=== PATIENT | female | born 1970 ===

== ENCOUNTER 2017-11-07 18:29 | Emergency (ER) | payer OTHER ==
[2017-11-07 18:33] VITALS: BP 120/60; PULSE 118; RESP 16; TEMP 98; O2SAT 100
[2017-11-07] MEDS ORDERED: Alum-Mag Hydrox-Simethicone Susp (30 mL) PO STA (19:20)
--- NOTE | 2017-11-07 19:24 | ED PDOC ---
HPI: Abdomen Time Seen by Provider: 11/07/17 18:53 Chief Complaint (Nursing): Abdominal Pain Chief Complaint (Provider): Generlized abdominal pain, tactile fever, body aches , cough History Per: Patient History/Exam Limitations: no limitations Onset/Duration Of Symptoms: Days Outside of [place] travel?: No Current Symptoms Are (Timing): Still Present Location Of Pain/Discomfort: Diffuse Quality Of Discomfort: Dull, Cramping Associated Symptoms: Fever, Chills, Nausea, Vomiting (x 1 ). denies: Loss Of Appetite Alleviating Factors: None Past Medical History Reviewed: Historical Data, Nursing Documentation, Vital Signs Vital Signs: Last Vital Signs Temp 98.0 F 11/07/17 18:32 Pulse 118 H 11/07/17 18:32 Resp 16 11/07/17 18:32 BP 120/60 11/07/17 18:32 Pulse Ox 100 11/07/17 18:32 - Medical History PMH: No Chronic Diseases - Surgical History Surgical History: No Surg Hx - Family History Family History: States: No Known Family Hx - Living Arrangements Living Arrangements: With Family - Social History Current smoker - smoking cessation education provided: No - Allergies Allergies/Adverse Reactions: Allergies Allergy/AdvReac Type Severity Reaction Status Date / Time Penicillins Allergy RASH Verified 11/07/17 18:33 Review of Systems ROS Statement: Except As Marked, All Systems Reviewed And Found Negative Constitutional: Positive for: Fever (Tactile), Chills Cardiovascular: Negative for: Chest Pain Respiratory: Positive for: Cough Gastrointestinal: Positive for: Nausea, Vomiting (x 1 ), Abdominal Pain Genitourinary Female: Negative for: Dysuria, Frequency Physical Exam - Reviewed Nursing Documentation Reviewed: Yes Vital Signs Reviewed: Yes - Physical Exam Appears: Positive for: Well, Non-toxic, No Acute Distress Head Exam: Positive for: ATRAUMATIC, NORMAL INSPECTION, NORMOCEPHALIC Skin: Positive for: Normal Color, Warm, DRY Eye Exam: Positive for: Normal appearance ENT: Positive for: Normal ENT Inspection Neck: Positive for: Normal, Painless ROM Cardiovascular/Chest: Positive for: Regular Rate, Rhythm Respiratory: Positive for: Normal Breath Sounds. Negative for: Accessory Muscle Use, Respiratory Distress Gastrointestinal/Abdominal: Positive for: Bowel Sounds, Soft, Tenderness (Mild epigastric ). Negative for: Normal Exam Back: Positive for: Normal Inspection Extremity: Positive for: Normal ROM Neurologic/Psych: Positive for: Alert, Oriented - ECG O2 Sat by Pulse Oximetry: 100 Medical Decision Making Medical Decision Making: Endorsed pending labs and re-evaluation. Disposition - Clinical Impression Clinical Impression: Viral illness - Patient ED Disposition Is Patient to be Admitted: Transfer of Care - Disposition Disposition: Transfer of Care Disposition Time: 19:25 Condition: GOOD
[2017-11-07 20:13] LABS: BASO % 0.1 % (0.0-2.0); EOS % 0.2 % (0.0-4.0); HEMOGLOBIN 11.1 g/dL (12.0-16.0); LYMPH # 1.1 K/uL (1.0-4.3); LYMPH % 6.4 % (20.0-40.0); MEAN CELL VOLUME 87.9 fl (81.0-99.0); MEAN CORPUSCULAR HEMOGLOBIN 29.1 pg (27.0-31.0); MEAN CORPUSCULAR HGB CONC 33.1 g/dL (33.0-37.0); MEAN PLATELET VOLUME 9.2 fl (7.2-11.7); MONO # 1.3 K/uL (0.0-0.8); MONO % 7.3 % (0.0-10.0); NEUT # 15.3 K/uL (1.8-7.0); NRBC % 0.5 % (0.0-0.0); PLATELET COUNT 211 K/uL (130-400); RED CELL DISTRIBUTION WIDTH 12.7 % (11.5-14.5); WHITE BLOOD COUNT 17.9 K/uL (4.8-10.8)
[2017-11-07 20:19] LABS: ALB/GLOB RATIO 1.1 (1.0-2.1); ALBUMIN 4.1 g/dL (3.5-5.0); CALCIUM 8.9 mg/dL (8.4-10.2)
[2017-11-07 21:00] LABS: ANISOCYTOSIS SLIGHT; BANDS 7 % (0-2); LYMPHOCYTE 10 % (20-50); MONOCYTE 9 % (0-10); NEUTROPHIL 74 % (42-75); PLATELET ESTIMATE NORMAL (NORMAL); TOTAL CELLS COUNTED 100
[2017-11-07 21:01] LABS: HYPOCHROMIC SLIGHT; LARGE PLATELETS PRESENT
[2017-11-07] MEDS ORDERED: Sodium Chloride 0.9% 1,000 ML IV STA (21:10)
[2017-11-07 21:40] LABS: SQUAMOUS EPITHIAL 18 /hpf (0-5); URINE BACTERIA MOD (<OCC); URINE BILIRUBIN NEGATIVE (NEGATIVE); URINE BLOOD MODERATE (NEGATIVE); URINE CLARITY TURBID (Clear); URINE COLOR YELLOW (YELLOW); URINE GLUCOSE (UA) NEG (Normal); URINE LEUKOCYTE ESTERASE LARGE Leu/uL (Negative); URINE NITRATE NEGATIVE (NEGATIVE); URINE PROTEIN 100 mg/dL (NEGATIVE); URINE UROBILINOGEN 0.2-1.0 mg/dL (0.2-1.0); WBC CLUMPS FEW /hpf
[2017-11-07] MEDS ORDERED: levoFLOXacin 500 mg in D5W 500 MG/100 ML BAG IVPB STA (23:32)
[2017-11-07] MEDS ORDERED: LEVOFLOXACIN IVPB ONE (23:34)
[2017-11-07] MEDS ORDERED: D5W IVPB ONE (23:34)
[2017-11-07] MEDS ORDERED: levoFLOXacin 500 mg in D5W 500 MG/100 ML BAG IVPB ONE (23:36)
--- NOTE | 2017-11-08 00:01 | ED PDOC ---
- Laboratory Results Result Diagrams: 11/07/17 19:45 11/07/17 19:45 - ECG O2 Sat by Pulse Oximetry: 100 - Progress ED Course And Treament: on PE: pt with flank pain (right) and with diffuse abd pain. Udip: (+) blood (+) Ketones (+)leuk (+) glucose impression: renal colic vs pyleo Medical Decision Making Medical Decision Making: ct: scan IMPRESSION: 1. No urolithiasis. 2. Left renal cortical enlargement and perinephric fat stranding raising concern for possible pyelonephritis. Correlate with clinical parameters. 3. The appendix is just above the upper limit of normal diameter, measuring 7 mm. No secondary findings to suggest acute appendicitis. Thus, this may represent variant anatomy. However, very early appendicitis can have a similar appearance. Correlate with clinical parameters and consider surgical consultation if indicated. Thank you for allowing us to participate in the care of your patient. Dictated and Authenticated by: Rafael Westfall DO 11/07/17 19:45 Pt offered admission-however declined. Pt is nontoxic appearing. Pt will be given Levaquin IV and d/c with PO levaquin. and advised to strictly adhere to abx regimen and f/u with pmd. Disposition - Clinical Impression Clinical Impression: Pyelonephritis - POA Present On Arrival: None - Disposition Referrals: [facility] [Outside] Disposition: Routine/Home Disposition Time: 00:14 Condition: GOOD Prescriptions: Levofloxacin [Levaquin] 500 mg PO DAILY #7 tablet Instructions: Acute Pyelonephritis (ED) Print Language: ROMANIAN Progress Note - Review of Symptoms General: Positive for: Chills, Malaise HEENT: No: Head Aches, Visual Changes, Eye Pain, Ear Pain, Dysphasia, Sinus Congestion, Post Nasal Drip, Sore Throat, Other Pulmonary: No: Dyspnea, Cough, Pleuritic Chest Pain, Other Cardiovascular: No: Chest Pain, Palpitations, Orthopnea, Paroxysmal Noc. Dyspnea , Edema, Light Headedness, Other Gastrointestinal: Positive for: Nausea, Vomiting, Abdominal Pain Genitourinary: Positive for: Dysuria, Hematuria Musculoskeletal: No: Muscle Pain, Joint Pain, Other Neurological: No: Weakness, Numbness, Incoordination, Change in speech, Confusion, Seizures, Other
[2017-11-08] MEDS ORDERED: levoFLOXacin 500 mg in D5W 500 MG/100 ML BAG IVPB SCH (09:00)
--- NOTE | 2017-11-08 11:19 | CT ---
PROCEDURE: CT Abdomen and Pelvis without intravenous contrast HISTORY: right flank pain COMPARISON: None. TECHNIQUE: Technique. Contrast Dose: No contrast was given Radiation dose: Total exam DLP = 535 mGy-cm. This CT exam was performed using one or more of the following dose reduction techniques: Automated exposure control, adjustment of the mA and/or kV according to patient size, and/or use of iterative reconstruction technique. FINDINGS: LOWER THORAX: Mild interstitial change and scarring is seen at the lung bases. No pleural effusion or infiltrate is seen. No pericardial effusion is noted. Bilateral breast implants are incompletely evaluated. Distal esophagus is unremarkable. Visualized stomach is within normal limits. All LIVER: Unremarkable. No gross lesion or ductal dilatation. GALLBLADDER AND BILE DUCTS: Unremarkable. PANCREAS: Unremarkable. No gross lesion or ductal dilatation. SPLEEN: Unremarkable. ADRENALS: Unremarkable. No mass. KIDNEYS AND URETERS: There is mild left renal cortical enlargement and some mild nonspecific perinephric changes surrounding the left kidney. No renal calculus is seen in either kidney. No ureteral calculus or ureteral dilatation is seen. Very subtle perinephric changes adjacent to the right kidney are not excluded. No periureteral changes are seen. VASCULATURE: Unremarkable. No aortic aneurysm. BOWEL: Unremarkable. No obstruction. No gross mural thickening. APPENDIX: No appreciable para appendiceal inflammatory changes are noted. Appendix is grossly normal in size. Appendix was reported to be enlarged by the preliminary reading. This represents disagreement from the preliminary report. PERITONEUM: Unremarkable. No free fluid. No free air. LYMPH NODES: A few small scattered lymph nodes are appreciated in the mesenteric and right lower quadrant. BLADDER: Unremarkable. REPRODUCTIVE: Uterus is grossly normal in size. No adnexal masses are identified. No significant fluid is seen in the pelvis. No presacral masses are noted. Perineal region is unremarkable. BONES: No acute fracture. OTHER FINDINGS: None. IMPRESSION: No ureteral calculus or hydronephrosis appreciated. No renal calculus seen. Nonspecific mild left renal cortical large man in overall decreased density with perinephric changes appreciated. Finding may suggest pyelonephritis in the correct clinical setting. Minimal amount may be also seen on the right without ureteral dilatation or calculus. This portion agrees with the preliminary reading provided by the on-call radiologist. Appendix does not appear to be significantly thickened and no periappendiceal inflammatory changes are seen.
[2017-11-08] MEDS ORDERED: Ciprofloxacin 400mg/200ml D5W 400 MG/200 ML BAG IVPB ONE (15:15)
== END 2017-11-08 00:30 | disposition home or self-care (01) ==
LOC: H.ER 18:29
DX: N12 Tubulo-interstitial nephritis, not specified as acute or chronic (principal); B34.9 Viral infection, unspecified; Z88.0 Allergy status to penicillin
CPT/HCPCS: 74176; 80053; 81003; 81025; 82948; 83690; 85025; 87804; 96365; 96375; 99282; J1885; J2405; J7040

== ENCOUNTER 2017-11-08 11:29 | Inpatient (IN) | payer OTHER ==
--- NOTE | 2017-11-08 12:48 | ED PDOC ---
HPI: Abdomen Time Seen by Provider: 11/08/17 11:56 Chief Complaint (Nursing): Abdominal Pain Chief Complaint (Provider): Abd pain History Per: Patient History/Exam Limitations: no limitations Onset/Duration Of Symptoms: Days (Yesterday) Additional Complaint(s): Pt. with abd pain, freq urination, chills, fever. Here overnight and dx with kidney infection. Pt. did not want to stay, so sent home on meds. Here as symptoms still present. Willing to stay. No diarrhea, chest pain, dyspnea, headaches, dizziness. Past Medical History Reviewed: Nursing Documentation, Vital Signs Vital Signs: Last Vital Signs Temp 101.0 F H 11/08/17 11:42 Pulse 120 H 11/08/17 11:42 Resp 16 11/08/17 11:42 BP 123/81 11/08/17 11:42 Pulse Ox 100 11/08/17 14:50 - Medical History PMH: No Chronic Diseases - Surgical History Surgical History: No Surg Hx - Family History Family History: States: Unknown Family Hx - Living Arrangements Living Arrangements: With Family - Social History Current smoker - smoking cessation education provided: No Alcohol: None Drugs: Denies - Immunization History Hx Tetanus Toxoid Vaccination: No Hx Influenza Vaccination: No Hx Pneumococcal Vaccination: No - Home Medications Home Medications: Ambulatory Orders Medication Instructions Recorded Levofloxacin [Levaquin] 500 mg PO DAILY #7 tablet 11/08/17 Meclizine [Meclizine*] 25 mg PO Q6 #30 tab 11/08/17 - Allergies Allergies/Adverse Reactions: Allergies Allergy/AdvReac Type Severity Reaction Status Date / Time Penicillins Allergy RASH Verified 11/07/17 18:33 Review of Systems ROS Statement: Except As Marked, All Systems Reviewed And Found Negative Constitutional: Positive for: Fever, Chills, Weakness Gastrointestinal: Positive for: Abdominal Pain Genitourinary Female: Positive for: Frequency Physical Exam - Reviewed Nursing Documentation Reviewed: Yes Vital Signs Reviewed: Yes - Physical Exam Appears: Positive for: Uncomfortable Head Exam: Positive for: ATRAUMATIC, NORMAL INSPECTION, NORMOCEPHALIC Skin: Positive for: Normal Color, Warm, DRY Eye Exam: Positive for: EOMI, Normal appearance, PERRL ENT: Positive for: Normal ENT Inspection Neck: Positive for: Normal, Painless ROM Cardiovascular/Chest: Positive for: Regular Rate, Rhythm Respiratory: Positive for: CNT, Normal Breath Sounds Gastrointestinal/Abdominal: Positive for: Bowel Sounds, Soft, Tenderness ( diffuse) Back: Positive for: L CVA Tenderness, R CVA Tenderness Extremity: Positive for: Normal ROM. Negative for: Tenderness, Pedal Edema Neurologic/Psych: Positive for: Alert, Oriented - Laboratory Results Result Diagrams: 11/08/17 13:40 11/08/17 13:40 Interpretation Of Abn Labs: 14.6 wbc - ECG ECG: Positive for: Interpreted By Me, Viewed By Me ECG Rhythm: Positive for: Sinus Tachycardia (mild) O2 Sat by Pulse Oximetry: 100 Pulse Ox Interpretation: Normal - Radiology X-Ray: Read By Radiologist X-Ray Interpretation: No Acute Disease - CT Scan/US ct Other Rad Studies (CT/US): Read By Radiologist - Progress ED Course And Treament: 1451: Stable. AAOx3. Pain controlled. Will need admit for pyelo. WBC elevated. Spoke with Dr. Villalba. Will admit. - Critical Care Total Time (In Min): 30 Documented Critical Care: Time excludes all time spent performint seperately billable procedures Disposition - Clinical Impression Clinical Impression: Pyelonephritis, Severe sepsis - Patient ED Disposition Is Patient to be Admitted: Yes Counseled Patient/Family Regarding: Studies Performed, Diagnosis - Disposition Disposition Time: 14:00 Condition: FAIR - Pt Status Changed To: Hospital Disposition Of: Inpatient - Admit Certification Admit to Inpatient:: After my assessment, the patient will require hospitalization for at least two midnights. This is because of the severity of symptoms shown, intensity of services needed, and/or the medical risk in this patient being treated as an outpatient. - POA Present On Arrival: None
--- NOTE | 2017-11-08 13:11 | RAD ---
HISTORY: Sepsis Patient COMPARISON: No prior. FINDINGS: LUNGS: No active pulmonary disease. PLEURA: No significant pleural effusion identified, no pneumothorax apparent. CARDIOVASCULAR: Normal. OSSEOUS STRUCTURES: No significant abnormalities. VISUALIZED UPPER ABDOMEN: Normal. OTHER FINDINGS: None. IMPRESSION: No active disease.
[2017-11-08] MEDS: Sodium Chloride 0.9% 1,000 ML IV SCH ×3 (13:18→17:11)
[2017-11-08 14:01] LABS: BASO % 0.2 % (0.0-2.0); HEMOGLOBIN 10.4 g/dL (12.0-16.0); LYMPH # 0.8 K/uL (1.0-4.3); LYMPH % 5.6 % (20.0-40.0); MEAN CELL VOLUME 89.1 fl (81.0-99.0); MEAN CORPUSCULAR HEMOGLOBIN 29.2 pg (27.0-31.0); MEAN CORPUSCULAR HGB CONC 32.7 g/dL (33.0-37.0); MEAN PLATELET VOLUME 8.7 fl (7.2-11.7); NEUT # 12.7 K/uL (1.8-7.0); NEUT % 87.2 % (50.0-75.0); RBC 3.56 Mil/uL (3.80-5.20); RED CELL DISTRIBUTION WIDTH 12.8 % (11.5-14.5); WHITE BLOOD COUNT 14.6 K/uL (4.8-10.8)
[2017-11-08 14:13] LABS: ALBUMIN 3.5 g/dL (3.5-5.0); ALT/SGPT 39 U/L (9-52); AST/SGOT 17 U/L (14-36); BLOOD UREA NITROGEN 13 mg/dl (7-17); CALCIUM 8.5 mg/dL (8.4-10.2); GFR AFRICAN-AMERICAN > 60; GFR NON-AFRICAN AMERICAN > 60; MAGNESIUM 2.2 MG/DL (1.6-2.3)
[2017-11-08 14:14] LABS: SQUAMOUS EPITHIAL 2 /hpf (0-5); URINE BACTERIA RARE (<OCC); URINE BILIRUBIN NEGATIVE (NEGATIVE); URINE BLOOD LARGE (NEGATIVE); URINE CLARITY SLIGHTY-CLOUDY (Clear); URINE COLOR YELLOW (YELLOW); URINE GLUCOSE (UA) NEG (Normal); URINE LEUKOCYTE ESTERASE SMALL Leu/uL (Negative); URINE NITRATE NEGATIVE (NEGATIVE); URINE PROTEIN 100 mg/dL (NEGATIVE); URINE UROBILINOGEN 0.2-1.0 mg/dL (0.2-1.0)
[2017-11-08] MEDS ORDERED: Ciprofloxacin 400mg/200ml D5W 400 MG/200 ML BAG IV STA (14:51)
--- NOTE | 2017-11-08 18:13 | CARD ---
APPROVED REPORT EKG Measurement Heart [id number] CT [id number] <Conclusion> Sinus tachycardia Otherwise normal ECG
[2017-11-08 18:32] LABS: VENOUS BLOOD GAS BASE EXCESS -4.4 mmol/L (0.0-2.0); VENOUS BLOOD GAS PCO2 35 mmHg (40-60); VENOUS BLOOD GAS PO2 20 mm/Hg (30-55); VENOUS BLOOD PH 7.37 (7.32-7.43)
--- NOTE | 2017-11-08 18:42 | CP.PCM.HP ---
History of Present Illness - History of Present Illness History of Present Illness: This is a 47 year old female with no significant past medical history, who initially presented to the ED on 11/07/2017 with the complaint of right flank pain associated with diffuse abdominal pain. At that time she had a CT scan of the abdomen revealing left renal perinephric fat stranding raising concern for possible pyelonephritis. U/A was also consistent with this diagnosis. The patient was offered admission; however she declined at that time. She was given Levaquin IV and discharged on PO Levaquin. However, the patient presented again today with fever, lethargy, and headache, and worsening flank pain. She was diagnosed with sepsis due to her fever and tachycardia. Lactic acid is 1.8. BCX and UCX were performed in the ED. Ciprofloxacin was initialized. She was given IV fluids which will be continued on the floor. The patient is to be admitted to telemetry for close monitoring, IV fluids, and IV antibiotics. Patient denies chest pain/sob/n/v/d. Admits to subjective fever and chills. Present on Admission - Present on Admission Any Indicators Present on Admission: No Review of Systems - Review of Systems Review of Systems: A 12 point ROS was conducted and found to be negative other than what was noted in HPI. Past Patient History - Infectious Disease Hx of Infectious Diseases: None - Past Medical History & Family History Past Family History: Reviewed and not pertinent - Past Social History Smoking Status: Never Smoked Alcohol: None Drugs: Denies - PSYCHIATRIC Hx Substance Use: No - ANESTHESIA Hx Anesthesia: No Hx Anesthesia Reactions: No Hx Malignant Hyperthermia: No Meds Allergies/Adverse Reactions: Allergies Allergy/AdvReac Type Severity Reaction Status Date / Time Penicillins Allergy RASH Verified 11/07/17 18:33 Physical Exam - Additional Findings Additional findings: Physical exam: Constitutional- cooperative, awake, alert Head- NCAT, PERRL Eye- PERRL, EOMI ENT- normal exam, MMM. Neck- normal inspection, supple, no JVD Respiratory- CTAB, no wheezes rales rhonchi Cardiovascular- RRR, +S1, +S2 no MRG GI/Abdominal- normal bowel sounds, soft, no mass, no hsm Skin- warm, dry Extremities Exam- normal capillary refill, normal inspection Neurological Exam- alert, awake, oriented Psych- normal mood, normal affect Results - Vital Signs Recent Vital Signs: Last Vital Signs Temp 102.9 F H 11/08/17 18:28 Pulse 114 H 11/08/17 15:49 Resp 18 11/08/17 15:49 BP 106/57 L 11/08/17 15:49 Pulse Ox 100 11/08/17 15:49 - Labs Result Diagrams: 11/08/17 13:40 11/08/17 13:40 Labs: Laboratory Results - last 24 hr 11/08/17 11/08/17 11/08/17 13:40 13:40 13:55 WBC 14.6 H RBC 3.56 L Hgb 10.4 L Hct 31.7 L MCV 89.1 MCH 29.2 MCHC 32.7 L RDW 12.8 Plt Count 198 MPV 8.7 Neut % (Auto) 87.2 H Lymph % (Auto) 5.6 L Levy % (Auto) 7.0 Eos % (Auto) 0.0 Baso % (Auto) 0.2 Neut # 12.7 H Lymph # 0.8 L Levy # 1.0 H Eos # 0.0 Baso # 0.0 pO2 VBG pH VBG pCO2 VBG HCO3 VBG Total CO2 VBG O2 Sat (Calc) VBG Base Excess VBG Potassium Glucose Lactate FiO2 Sodium 134 Potassium 4.0 Chloride 104 Carbon Dioxide 18 L Anion Gap 16 BUN 13 Creatinine 0.9 Est GFR ( Amer) > 60 Est GFR (Non-Af Amer) > 60 Random Glucose 95 Calcium 8.5 Phosphorus 2.4 L Magnesium 2.2 Total Bilirubin 0.8 AST 17 ALT 39 Alkaline Phosphatase 109 Total Protein 7.0 Albumin 3.5 Globulin 3.5 Albumin/Globulin Ratio 1.0 Venous Blood Potassium Urine Color Yellow Urine Clarity Slighty-cloudy Urine pH 6.0 Ur Specific [place] 1.015 Urine Protein 100 Urine Glucose (UA) Neg Urine Ketones Trace Urine Blood Large Urine Nitrate Negative Urine Bilirubin Negative Urine Urobilinogen 0.2-1.0 Ur Leukocyte Esterase Small Urine RBC (Auto) 32 H Urine Microscopic WBC 17 H Ur Squamous Epith Cells 2 Urine Bacteria Rare 11/08/17 18:23 WBC RBC Hgb Hct MCV MCH MCHC RDW Plt Count MPV Neut % (Auto) Lymph % (Auto) Levy % (Auto) Eos % (Auto) Baso % (Auto) Neut # Lymph # Levy # Eos # Baso # pO2 20 L VBG pH 7.37 VBG pCO2 35 L VBG HCO3 19.7 VBG Total CO2 21.3 L VBG O2 Sat (Calc) 93.1 H VBG Base Excess -4.4 L VBG Potassium 4.2 Glucose 86 Lactate 1.8 FiO2 21.0 Sodium 135.0 Potassium Chloride 110.0 H Carbon Dioxide Anion Gap BUN Creatinine Est GFR ( Amer) Est GFR (Non-Af Amer) Random Glucose Calcium Phosphorus Magnesium Total Bilirubin AST ALT Alkaline Phosphatase Total Protein Albumin Globulin Albumin/Globulin Ratio Venous Blood Potassium 4.2 Urine Color Urine Clarity Urine pH Ur Specific [place] Urine Protein Urine Glucose (UA) Urine Ketones Urine Blood Urine Nitrate Urine Bilirubin Urine Urobilinogen Ur Leukocyte Esterase Urine RBC (Auto) Urine Microscopic WBC Ur Squamous Epith Cells Urine Bacteria Assessment & Plan - Assessment and Plan (Free Text) Plan: ASSESSMENT/PLAN Patient is a 47 yo female with no pmh admitted for left sided pyelonephritis resulting in sepsis Sepsis secondary to acute pyelonephritis - Admission to tele - Continue IV hydration, NS at 200 cc/hour - Ciprofloxacin 400 mg IVPB q 12 hours, first dose given in ED - Toradol 30 mg iVP q6h PRN for moderate to severe pain - Tylenol for fever - No signs of shock/hypotension - BCX, UCX pending - Lactic acid 1.8 on VBG - Zofran PRN N/V - Repeat labs in AM DVT prophylaxis - Lovenox 40 mg SC daily
[2017-11-08] MEDS ORDERED: Sodium Chloride 0.9% 1,000 ML IV SCH (18:45)
[2017-11-09] MEDS: Sodium Chloride 0.9% 1,000 ML IV SCH ×5 (00:43→21:48)
[2017-11-09 07:21] LABS: BASO % 0.4 % (0.0-2.0); EOS % 0.4 % (0.0-4.0); HEMOGLOBIN 9.5 g/dL (12.0-16.0); LYMPH # 0.7 K/uL (1.0-4.3); LYMPH % 10.6 % (20.0-40.0); MEAN CELL VOLUME 88.3 fl (81.0-99.0); MEAN CORPUSCULAR HEMOGLOBIN 30.6 pg (27.0-31.0); MEAN CORPUSCULAR HGB CONC 34.6 g/dL (33.0-37.0); MEAN PLATELET VOLUME 8.9 fl (7.2-11.7); MONO # 0.6 K/uL (0.0-0.8); NEUT # 5.6 K/uL (1.8-7.0); NEUT % 79.6 % (50.0-75.0); RBC 3.11 Mil/uL (3.80-5.20); RED CELL DISTRIBUTION WIDTH 12.8 % (11.5-14.5); WHITE BLOOD COUNT 7.1 K/uL (4.8-10.8)
[2017-11-09 08:01] LABS: BLOOD UREA NITROGEN 9 mg/dl (7-17); GFR AFRICAN-AMERICAN > 60; GFR NON-AFRICAN AMERICAN > 60
[2017-11-09 08:02] LABS: CALCIUM 8.1 mg/dL (8.4-10.2)
[2017-11-09] MEDS: Enoxaparin 40 mg Syringe SC SCH (08:56)
[2017-11-09] MEDS ORDERED: Influenza Vaccine 18yr & older 0.5 ML/45 MCG SYR IM ONE (09:00)
[2017-11-09] MEDS ORDERED: Ciprofloxacin 200mg/100ml D5W 100 ML IVPB SCH (09:00)
[2017-11-09] MEDS ORDERED: guaiFENesin 200 mg/10 ml Syrup UD PO PRN (10:43)
--- NOTE | 2017-11-09 13:59 | CP.PCM.PN ---
Subjective - Date & Time of Evaluation Date of Evaluation: 11/09/17 Time of Evaluation: 09:30 - Subjective Subjective: Patient was seen and examined at bedside. States she feels much better. C/o occasional dry cough today but states it is mild. Her pain has improved and headache resolved. Still occ has low grade fever; has Tylenol prescribed PRN. Overall improving. Denies cp/sob/n/v/d. Objective - Vital Signs/Intake and Output Vital Signs (last 24 hours): Temp Pulse Resp BP Pulse Ox 100.4 F H 89 18 125/82 97 11/09/17 11:49 11/09/17 11:49 11/09/17 11:49 11/09/17 11:49 11/09/17 11:49 - Medications Medications: Current Medications Acetaminophen (Tylenol 325mg Tab) 650 mg PO Q6 PRN PRN Reason: Fever >100.4 F Last Admin: 11/08/17 18:28 Dose: 650 mg Enoxaparin Sodium (Lovenox) 40 mg SC DAILY [facility] PRN Reason: Protocol Last Admin: 11/09/17 08:56 Dose: 40 mg Guaifenesin (Robitussin) 200 mg PO Q6 PRN PRN Reason: Cough Sodium Chloride (Sodium Chloride 0.9%) 1,000 mls @ 1,000 mls/hr IV .Q1H [facility] Last Admin: 11/09/17 08:53 Dose: 1,000 mls/hr Sodium Chloride (Sodium Chloride 0.9%) 1,000 mls @ 125 mls/hr IV .Q8H [facility] Stop: 11/09/17 18:32 Last Admin: 11/09/17 13:22 Dose: 125 mls/hr Ciprofloxacin (Cipro 400mg/200ml Dsw) 400 mg in 200 mls @ 200 mls/hr IVPB Q12 [facility] PRN Reason: Protocol Ketorolac Tromethamine (Toradol) 30 mg IVP Q6 PRN PRN Reason: pain, moderate to severe 4-10 Ondansetron HCl (Zofran Inj) 4 mg IVP Q6 PRN PRN Reason: Nausea/Vomiting - Labs Labs: 11/09/17 06:30 11/09/17 06:30 - Additional Findings Additional findings: Physical exam: Constitutional- cooperative, awake, alert, nontoxic appearing Head- NCAT, PERRL Eye- PERRL, EOMI ENT- normal exam, MMM. Neck- normal inspection, supple, no JVD Respiratory- CTAB, no wheezes rales rhonchi Cardiovascular- RRR, +S1, +S2 no MRG GI/Abdominal- normal bowel sounds, soft, no mass, no hsm Skin- warm, dry, some mild tenderness to left flank Extremities Exam- normal capillary refill, normal inspection Neurological Exam- alert, awake, oriented Psych- normal mood, normal affect Assessment and Plan - Assessment and Plan (Free Text) Plan: ASSESSMENT/PLAN Patient is a 47 yo female with no pmh admitted for left sided pyelonephritis resulting in sepsis Sepsis secondary to acute pyelonephritis, improving - Admission to [facility] - Reduce IV NS from 200 to 125 cc/hour as sepsis is improving - Continue Ciprofloxacin 400 mg IVPB q 12 hours - Toradol 30 mg iVP q6h PRN for moderate to severe pain - Tylenol for fever - No signs of shock/hypotension overnight - BCX, UCX pending - Zofran PRN N/V - Repeat labs in AM Mild dry cough - Likely mild URI - robitussin prescribed PRN - No c/o SOB - monitor DVT prophylaxis - Lovenox 40 mg SC daily Disposition: For possible discharge to home tomorrow on Cipro if no overnight events tonight and continues to improve.
[2017-11-09] MEDS: Ciprofloxacin 400mg/200ml D5W 400 MG/200 ML BAG IVPB SCH (21:47)
[2017-11-09] MEDS ORDERED: Alum-Mag Hydrox-Simethicone Susp (30 mL) PO ONE (23:13)
[2017-11-10 00:52] VITALS: RESP 18
[2017-11-10 05:29] LABS: MEAN CELL VOLUME 86.1 fl (81.0-99.0); MEAN CORPUSCULAR HGB CONC 34.8 g/dL (33.0-37.0); RBC 3.34 Mil/uL (3.80-5.20); RED CELL DISTRIBUTION WIDTH 12.5 % (11.5-14.5); WHITE BLOOD COUNT 5.5 K/uL (4.8-10.8)
[2017-11-10 05:42] LABS: BLOOD UREA NITROGEN 6 mg/dl (7-17); CALCIUM 8.7 mg/dL (8.4-10.2); GFR AFRICAN-AMERICAN > 60; GFR NON-AFRICAN AMERICAN > 60
[2017-11-10] MEDS ORDERED: Influenza Vaccine 18yr & older 0.5 ML/45 MCG SYR IM ONE (06:30)
[2017-11-10 07:58] VITALS: BP 115/71; TEMP 99; O2SAT 99
[2017-11-10] MEDS: Enoxaparin 40 mg Syringe SC SCH (08:59)
[2017-11-10] MEDS: Ciprofloxacin 400mg/200ml D5W 400 MG/200 ML BAG IVPB SCH (09:00)
[2017-11-10] MEDS ORDERED: Potassium Chloride 20 mEq ER Tab PO ONE (10:33)
--- NOTE | 2017-11-10 10:40 | CP.PCM.DIS ---
Provider - Provider Date of Admission: 11/08/17 14:55 Attending physician: Siddhartha Villalba DO Time Spent in preparation of Discharge (in minutes): 30 Diagnosis - Discharge Diagnosis (1) Pyelonephritis Status: Acute (2) Severe sepsis Status: Acute Hospital Course - Lab Results Lab Results: Micro Results 11/08/17 14:55 Blood Blood Culture - Preliminary NO GROWTH AFTER 24 HOURS Most Recent Lab Values WBC 5.5 K/uL (4.8-10.8) 11/10/17 04:25 RBC 3.34 Mil/uL (3.80-5.20) L 11/10/17 04:25 Hgb 10.0 g/dL (12.0-16.0) L 11/10/17 04:25 Hct 28.7 % (34.0-47.0) L 11/10/17 04:25 MCV 86.1 fl (81.0-99.0) D 11/10/17 04:25 MCH 30.0 pg (27.0-31.0) 11/10/17 04:25 MCHC 34.8 g/dL (33.0-37.0) 11/10/17 04:25 RDW 12.5 % (11.5-14.5) 11/10/17 04:25 Plt Count 212 K/uL (130-400) 11/10/17 04:25 MPV 8.9 fl (7.2-11.7) 11/09/17 06:30 Neut % (Auto) 79.6 % (50.0-75.0) H 11/09/17 06:30 Lymph % (Auto) 10.6 % (20.0-40.0) L 11/09/17 06:30 [place] % (Auto) 9.0 % (0.0-10.0) 11/09/17 06:30 Eos % (Auto) 0.4 % (0.0-4.0) 11/09/17 06:30 Baso % (Auto) 0.4 % (0.0-2.0) 11/09/17 06:30 Neut # 5.6 K/uL (1.8-7.0) 11/09/17 06:30 Lymph # 0.7 K/uL (1.0-4.3) L 11/09/17 06:30 [place] # 0.6 K/uL (0.0-0.8) 11/09/17 06:30 Eos # 0.0 K/uL (0.0-0.7) 11/09/17 06:30 Baso # 0.0 K/uL (0.0-0.2) 11/09/17 06:30 pO2 20 mm/Hg (30-55) L 11/08/17 18:23 VBG pH 7.37 (7.32-7.43) 11/08/17 18:23 VBG pCO2 35 mmHg (40-60) L 11/08/17 18:23 VBG HCO3 19.7 mmol/L 11/08/17 18:23 VBG Total CO2 21.3 mmol/L (22-28) L 11/08/17 18:23 VBG O2 Sat (Calc) 93.1 % (40-65) H 11/08/17 18:23 VBG Base Excess -4.4 mmol/L (0.0-2.0) L 11/08/17 18:23 VBG Potassium 4.2 mmol/L (3.6-5.2) 11/08/17 18:23 Sodium 135.0 mmol/L (132-148) 11/08/17 18:23 Chloride 110.0 mmol/L (98-107) H 11/08/17 18:23 Glucose 86 mg/dL (65-105) 11/08/17 18:23 Lactate 1.8 mmol/L (0.7-2.1) 11/08/17 18: FiO2 21.0 % 11/08/17 18:23 Sodium 139 mmol/l (132-148) 11/10/17 04:25 Potassium 3.3 MMOL/L (3.6-5.0) L 11/10/17 04:25 Chloride 104 mmol/L (98-107) 11/10/17 04:25 Carbon Dioxide 25 mmol/L (22-30) 11/10/17 04:25 Anion Gap 13 (10-20) 11/10/17 04:25 BUN 6 mg/dl (7-17) L 11/10/17 04:25 Creatinine 0.8 mg/dl (0.7-1.2) 11/10/17 04:25 Est GFR ( Amer) > 60 11/10/17 04:25 Est GFR (Non-Af Amer) > 60 11/10/17 04:25 Random Glucose 93 mg/dL (65-105) 11/10/17 04:25 Lactic Acid 1.4 MMOL/L (0.7-2.1) 11/08/17 21:00 Calcium 8.7 mg/dL (8.4-10.2) 11/10/17 04:25 Phosphorus 2.4 mg/dl (2.5-4.5) L 11/08/17 13:40 Magnesium 2.2 MG/DL (1.6-2.3) 11/08/17 13:40 Total Bilirubin 0.8 mg/dl (0.2-1.3) 11/08/17 13:40 AST 17 U/L (14-36) 11/08/17 13:40 ALT 39 U/L (9-52) 11/08/17 13:40 Alkaline Phosphatase 109 U/L (38-126) 11/08/17 13:40 Total Protein 7.0 G/DL (6.3-8.2) 11/08/17 13:40 Albumin 3.5 g/dL (3.5-5.0) 11/08/17 13:40 Globulin 3.5 gm/dL (2.2-3.9) 11/08/17 13:40 Albumin/Globulin Ratio 1.0 (1.0-2.1) 11/08/17 13:40 Venous Blood Potassium 4.2 mmol/L (3.6-5.2) 11/08/17 18:23 Urine Color Yellow (YELLOW) 11/08/17 13:55 Urine Clarity Slighty-cloudy (Clear) 11/08/17 13:55 Urine pH 6.0 (5.0-8.0) 11/08/17 13:55 Ur Specific [place] 1.015 (1.003-1.030) 11/08/17 13:55 Urine Protein 100 mg/dL (NEGATIVE) 11/08/17 13:55 Urine Glucose (UA) Neg mg/dL (Normal) 11/08/17 13:55 Urine Ketones Trace mg/dL (NEGATIVE) 11/08/17 13:55 Urine Blood Large (NEGATIVE) 11/08/17 13:55 Urine Nitrate Negative (NEGATIVE) 11/08/17 13:55 Urine Bilirubin Negative (NEGATIVE) 11/08/17 13:55 Urine Urobilinogen 0.2-1.0 mg/dL (0.2-1.0) 11/08/17 13:55 Ur Leukocyte Esterase Small Ame/uL (Negative) 11/08/17 13:55 Urine RBC (Auto) 32 /hpf (0-3) H 11/08/17 13:55 Urine Microscopic WBC 17 /hpf (0-5) H 11/08/17 13:55 Ur Squamous Epith Cells 2 /hpf (0-5) 11/08/17 13:55 Urine Bacteria Rare (<OCC) 11/08/17 13:55 - Hospital Course Hospital Course: 47 year old female with no significant past medical history, who initially presented to the ED on 11/07/2017 with the complaint of right flank pain associated with diffuse abdominal pain. At that time she had a CT scan of the abdomen revealing left renal perinephric fat stranding raising concern for possible pyelonephritis. U/A was also consistent with this diagnosis. The patient was offered admission; however she declined at that time. She was given Levaquin IV and discharged on PO Levaquin. However, the patient presented again today with fever, lethargy, and headache, and worsening flank pain. She was diagnosed with sepsis due to her fever and tachycardia. Lactic acid is 1.8. BCX and UCX were performed in the ED. Ciprofloxacin was initialized. She was given IV fluids which was continued on the floor. The patient was admitted to telemetry for close monitoring, IV fluids, and IV antibiotics. Patient tolerated Cipro IV q12 well and defervesced. WBC normalized. Pain improved. Patient to be discharged home with PO Cipro and follow up with PCP. If condition worsens, patient was instructed to return to ER. Discharge Exam - Head Exam Head Exam: ATRAUMATIC, NORMAL INSPECTION, NORMOCEPHALIC - Eye Exam Eye Exam: EOMI, Normal appearance, PERRL - ENT Exam ENT Exam: Mucous Membranes Moist, Normal Oropharynx - Respiratory Exam Respiratory Exam: Clear to PA & Lateral, NORMAL BREATHING PATTERN, UNREMARKABLE - Cardiovascular Exam Cardiovascular Exam: RRR, +S1, +S2 - GI/Abdominal Exam GI & Abdominal Exam: Normal Bowel Sounds, Soft, Unremarkable. absent: Mass, Organomegaly, Tenderness - Extremities Exam Extremities exam: normal capillary refill, pedal pulses present - Back Exam Back exam: absent: CVA tenderness (L), CVA tenderness (R), paraspinal tenderness - Neurological Exam Neurological exam: Alert, Oriented x3 - Psychiatric Exam Psychiatric exam: Normal Affect, Normal Mood Discharge Plan - Discharge Medications Prescriptions: Ciprofloxacin [Cipro] 500 mg PO Q12 #20 tab - Follow Up Plan Condition: FAIR Disposition: HOME/ ROUTINE
[2017-11-10 10:47] VITALS: PULSE 65
== END 2017-11-10 12:22 | disposition home or self-care (01) | DRG 901 ==
LOC: H.ER 11:29 → H.ERHOLD 14:55 → H.TEL 18:47
PROVIDERS: ADMIT Internal Medicine; ATTEND Internal Medicine
PROC: 3E0234Z Introduction of Serum, Toxoid and Vaccine into Muscle, Percutaneous Approach (ICD-10-PCS; principal; 2017-11-10)
DX: A41.9 Sepsis, unspecified organism (principal); N10 Acute pyelonephritis; R65.20 Severe sepsis without septic shock; J06.9 Acute upper respiratory infection, unspecified; Z88.0 Allergy status to penicillin; Z23 Encounter for immunization